=== PATIENT | female | born 1950 | race Caucasian/White ===

== ENCOUNTER 2019-09-13 09:41 | Emergency (ER) | payer MEDICARE ==
[2019-09-13] MEDS ORDERED: SINGULAIR PO (10:29)
[2019-09-13 11:39] LABS: PH-URINE 5.5 (5.0 - 8.0); URINE APPEARANCE HAZY; URINE BILIRUBIN NEGATIVE (NEGATIVE); URINE BLOOD TRACE (NEGATIVE); URINE COLOR YELLOW; URINE GLUCOSE NEGATIVE (NEGATIVE); URINE KETONE NEGATIVE (NEGATIVE); URINE LEUKOCYTE ESTERASE 1+ (NEGATIVE); URINE NITRATE NEGATIVE (NEGATIVE); URINE PROTEIN(semi-quant) TRACE mg/dL (NEGATIVE); URINE UROBILINOGEN NORMAL (NORMAL)
[2019-09-13 11:40] LABS: URINE MUCUS PRESENT (NOT PRESENT)
[2019-09-13] MEDS ORDERED: NORCO 325 MG-51 TA1 PO (12:05)
[2019-09-13] MEDS ORDERED: MACROBID 100 M100 MG PO (12:05)
[2019-09-13 12:20] VITALS: BP 159/84
== END 2019-09-13 12:18 | disposition home or self-care (01) ==
LOC: ED 09:41
PROVIDERS: Nurse Practitioner Primary Care
DX: M54.32 Sciatica, left side (principal); N39.0 Urinary tract infection, site not specified; Z98.890 Other specified postprocedural states
CPT/HCPCS: J1885; J2360